=== PATIENT | female | born 2000 | race Two or more races ===

== ENCOUNTER 2023-10-16 13:26 | Emergency (ER) | payer OTHER ==
[~2023-10-16] VITALS: Ht 167.6 cm; Wt 54.3 kg
[2023-10-16 13:51] VITALS: BP 132/93; PULSE 69; RESP 20; TEMP 98.6; O2SAT 100
[2023-10-16] MEDS ORDERED: NAPR-746 PO (14:45)
[2023-10-16] MEDS ORDERED: CEPH500C PO (14:45)
== END 2023-10-16 15:01 | disposition home or self-care (01) ==
LOC: ER 13:26
DX: S61.012A Laceration without foreign body of left thumb without damage to nail, initial encounter (principal); Z79.899 Other long term (current) drug therapy; W26.0XXA Contact with knife, initial encounter; Y93.89 Activity, other specified; Y92.89 Other specified places as the place of occurrence of the external cause; Y99.8 Other external cause status
CPT/HCPCS: 12002; 99283; J2001